=== PATIENT | male | born 1970 | race Caucasian/White ===

== ENCOUNTER 2017-09-08 09:00 | Day surgery (SDC) | payer OTHER ==
[~2017-09-08] VITALS: Ht 182.9 cm; Wt 79.4 kg
[~2017-09-08 09:00] MED LIST: ELIQUIS5 MG PO
== END 2017-09-08 11:43 | disposition home or self-care (01) ==
LOC: CATH 09:00
PROC: 5A2204Z Restoration of Cardiac Rhythm, Single (ICD-10-PCS; principal; 2017-09-08)
DX: I48.1 Persistent atrial fibrillation (principal); Z79.01 Long term (current) use of anticoagulants
CPT/HCPCS: 93005; J2250